=== PATIENT | female | born 1985 | race Caucasian/White ===

== ENCOUNTER 2018-09-19 07:26 | Day surgery (SDC) | payer BC ==
[~2018-09-19 07:26] MED LIST: Dexamethasone 4 MG/ML 5 ML MDV ONE; HYDROmorphone 0.5 MG/0.5 ML Syringe ONE; Ketorolac 30 MG/ML SDV ONE; Lactated Ringers 1,000 ML IV SCH; Lidocaine 1% 6 ML ONE; Lidocaine 1%/Sod Bicarbonate in NS 8.4% 1 ML Syringe IDERM PRN; Midazolam 1 MG/ML 2 ML SDV ONE; Ondansetron 4 MG/2 ML SDV ONE; Propofol 200 MG/20 ML SDV ONE; Rocuronium 50 MG/5 ML Vial ONE; Sodium Chloride 0.9% 10 ML Syringe FLUSH PRN; ceFAZolin 1 GM Vial ONE; fentaNYL 250 MCG/5 ML SDV ONE
--- NOTE | 2018-09-19 08:05 | PCM.PREANE ---
Preanesthetic Assessment - Anesthesia/Transfusion/Family Hx Anesthesia History: Prior Anesthesia Without Reaction Family History of Anesthesia Reaction: No Transfusion History: No Prior Transfusion(s) - Review of Systems General: No Symptoms Pulmonary: No Symptoms Cardiovascular: No Symptoms Gastrointestinal: Abdominal Pain (Left lower quad) Neurological: No Symptoms Other: Reports: Easy Bruising, Anxiety - Physical Assessment NPO Status Date: 09/18/18 NPO Status Time: 00:00 Pulse: 97 O2 Sat by Pulse Oximetry: 100 Respiratory Rate: 16 Blood Pressure: 124/82 Temperature: 36.3 C Height: 1.52 m Weight: 42 kg ASA Class: 2 Mental Status: Alert & Oriented x3 Airway Class: Mallampati = 1 Dentition: Reports: Normal Dentition Thyro-Mental Finger Breadths: 3 Mouth Opening Finger Breadths: 3 ROM/Head Extension: Full Lungs: Clear to Auscultation, Normal Respiratory Effort Cardiovascular: Regular Rate, Regular Rhythm - Lab Values: Laboratory Last Values WBC 10.01 K/mm3 (3.98-10.04) 09/17/18 16:33 RBC 4.35 M/mm3 (3.98-5.22) 09/17/18 16:33 Hgb 13.4 gm/L (11.2-15.7) 09/17/18 16:33 Hct 41.0 % (34.1-44.9) 09/17/18 16:33 MCV 94.3 fl (79.4-94.8) 09/17/18 16:33 MCH 30.8 pg (25.6-32.2) 09/17/18 16:33 MCHC 32.7 g/dl (32.2-35.5) 09/17/18 16:33 RDW Std Deviation 45.1 fL (36.4-46.3) 09/17/18 16:33 Plt Count 415 K/mm3 (182-369) H 09/17/18 16:33 MPV 10.0 fl (9.4-12.3) 09/17/18 16:33 Neut % (Auto) 66.2 % (34.0-71.1) 09/17/18 16:33 Lymph % (Auto) 26.5 % (19.3-51.7) 09/17/18 16:33 [place] % (Auto) 5.7 % (4.7-12.5) 09/17/18 16:33 Eos % (Auto) 1.2 (0.7-5.8) 09/17/18 16:33 Baso % (Auto) 0.2 % (0.1-1.2) 09/17/18 16:33 Neut # (Auto) 6.63 K/mm3 (1.56-6.13) H 09/17/18 16:33 Lymph # (Auto) 2.65 K/mm3 (1.18-3.74) 09/17/18 16:33 [place] # (Auto) 0.57 K/mm3 (0.24-0.36) H 09/17/18 16:33 Eos # (Auto) 0.12 K/mm3 (0.04-0.36) 09/17/18 16:33 Baso # (Auto) 0.02 K/mm3 (0.01-0.08) 09/17/18 16:33 Creatinine 0.8 mg/dL (0.55-1.02) 09/17/18 16:33 Est Cr Clr Drug Dosing TNP 09/17/18 16:33 Estimated GFR (MDRD) > 60 mL/min (>60) 09/17/18 16:33 HCG, Qual Negative (NEGATIVE) 09/17/18 16:33 Urine Color Yellow (Yellow) 09/17/18 16:33 Urine Appearance Clear (Clear) 09/17/18 16:33 Urine pH 6.5 (5.0-8.0) 09/17/18 16:33 Ur Specific [place] 1.025 (1.005-1.030) 09/17/18 16:33 Urine Protein Negative (Negative) 09/17/18 16:33 Urine Glucose (UA) Negative (Negative) 09/17/18 16:33 Urine Ketones Trace (Negative) H 09/17/18 16:33 Urine Occult Blood Negative (Negative) 09/17/18 16:33 Urine Nitrite Negative (Negative) 09/17/18 16:33 Urine Bilirubin Negative (Negative) 09/17/18 16:33 Urine Urobilinogen 0.2 (0.2-1.0) 09/17/18 16:33 Ur Leukocyte Esterase Negative (Negative) 09/17/18 16:33 - Anesthesia Plan Pre-Op Medication Ordered: None - Acknowledgements Anesthesia Type Planned: General Anesthesia Pt an Appropriate Candidate for the Planned Anesthesia: Yes Alternatives and Risks of Anesthesia Discussed w Pt/Guardian: Yes Pt/Guardian Understands and Agrees with Anesthesia Plan: Yes PreAnesthesia Questionnaire Gastrointestinal History: Reports: GERD - SUBSTANCE USE Smoking Status *Q: Never Smoker Tobacco Use Within Last Twelve Months: No Second Hand Smoke Exposure: No Days Per Week of Alcohol Use: 0 Number of Drinks Per Day: 0 Total Drinks Per Week: 0 Recreational Drug Use History: No - CURRENT (IN HOUSE) MEDS Current Meds: Current Medications Lactated Ringer's (Ringers, Lactated) 1,000 mls @ 125 mls/hr IV ASDIRECTED KARLI Stop: 09/19/18 23:00 Lidocaine/Sodium Bicarbonate (Buffered Lidocaine 1% In Ns 8.4%) 0.25 ml IDERM ONETIME PRN PRN Reason: Prior to IV Start Stop: 09/19/18 18:00 Sodium Chloride (Saline Flush) 10 ml FLUSH ASDIRECTED PRN PRN Reason: Keep Vein Open Stop: 09/19/18 18:00 Discontinued Medications Cefazolin Sodium (Ancef) Confirm Administered Dose 2 gm .ROUTE .STK-MED ONE Stop: 09/19/18 07:12 Dexamethasone (Dexamethasone) Confirm Administered Dose 20 mg .ROUTE .STK-MED ONE Stop: 09/19/18 07:12 Fentanyl (Sublimaze) Confirm Administered Dose 250 mcg .ROUTE .STK-MED ONE Stop: 09/19/18 07:13 Hydromorphone HCl (Dilaudid) Confirm Administered Dose 0.5 mg .ROUTE .STK-MED ONE Stop: 09/19/18 07:13 Lidocaine HCl (Xylocaine-Mpf 1%) Confirm Administered Dose 6 mls @ as directed .ROUTE .STK-MED ONE Stop: 09/19/18 07:12 Ketorolac Tromethamine (Toradol) Confirm Administered Dose 30 mg .ROUTE .STK- MED ONE Stop: 09/19/18 07:12 Midazolam HCl (Versed 1 Mg/Ml) Confirm Administered Dose 2 mg .ROUTE .STK-MED ONE Stop: 09/19/18 07:12 Ondansetron HCl (Zofran) Confirm Administered Dose 4 mg .ROUTE .STK-MED ONE Stop: 09/19/18 07:12 Propofol (Diprivan 20 Ml) Confirm Administered Dose 200 mg .ROUTE .STK-MED ONE Stop: 09/19/18 07:12 Rocuronium Crump (Zemuron) Confirm Administered Dose 50 mg .ROUTE .STK-MED ONE Stop: 09/19/18 07:12
[2018-09-19] MEDS ORDERED: Methylene Blue 50 MG/10 ML Ampule ONE (08:09)
[2018-09-19] MEDS ORDERED: Bupivacaine 0.5% 30 ML SDV ONE (08:10)
[2018-09-19] MEDS ORDERED: Dextrose 5% in Water 100 ML ONE ×2 (08:10→09:30)
[2018-09-19] MEDS ORDERED: diphenhydrAMINE 50 MG/ML SDV IVPUSH PRN (09:36)
[2018-09-19] MEDS ORDERED: Ondansetron 4 MG/2 ML SDV IVPUSH PRN (09:36)
[2018-09-19] MEDS ORDERED: fentaNYL 100 MCG/2 ML SDV IVPUSH PRN (09:36)
[2018-09-19] MEDS ORDERED: HYDROmorphone 0.5 MG/0.5 ML Syringe IVPUSH PRN (09:36)
[2018-09-19] MEDS ORDERED: ePHEDrine 50 MG/ML SDV IVPUSH PRN (09:36)
[2018-09-19] MEDS ORDERED: Neostigmine Methylsulfate 1 MG/ML 5 ML Syringe ONE (09:42)
[2018-09-19] MEDS ORDERED: Phenylephrine 1 MG in Sodium Chloride 0.9% 10 ML IV SCH (09:45)
[2018-09-19] MEDS ORDERED: Acetaminophen/oxyCODONE 325-5 MG Tab PO PRN (10:19)
--- NOTE | 2018-09-19 10:25 | PCM.OPNOTE ---
- General Post-Op/Procedure Note Date of Surgery/Procedure: 09/19/18 Operative Procedure(s): Laparoscopy, lysis of pelvic adhesions, biopsy of peritoneum, cautery ablation of endometriosis, chromotubation Findings: Patient had endometriosis involving the uterine body including the fundus, posterior cul-de-sac area involving the insertion of the uterosacral ligaments. There was endometriosis implants and a small endometrioma on the left ovary. Patient had increased vascularity in the broad ligaments right side greater than left. Fallopian tubes were patent bilaterally however left side showed a small band adhesion from the fimbria to the ovary. Flow from this fallopian tube was somewhat restricted but present. Cul-de-sac had 2 peritoneal defects 1 approximately 2 cm in diameter soft flaccid and the other just a few millimeters in diameter. No entry cul-de-sac endometriosis was noted. The appendix. We flaccid and noninflamed. Liver edge was normal. The gallbladder was distended. No upper abdominal abnormalities were noted. Pre Op Diagnosis: 1. Endometriosis. F2. Pelvic pain Post-Op Diagnosis: Same with left ovarian endometrioma, adhesions involving the left broad ligament, left ovary and left fallopian tube and the anterior cul-de- sac. Patent fallopian tubes bilaterally Anesthesia Technique: General ET Tube Other Anesthesia Type: Marcaine 0.5% local10 mL total Primary Surgeon: Gera Barajas Secondary Surgeon: Shubham Sheppard Anesthesia Provider: Verónica Bangura Vascular Surgery Physician: Agustín Blakely Reason Vascular Surgery Physician Was Necessary: Retraction, assistance, patient safety, quality of care. Role of Vascular Surgery Physician: Same Pathology: Biopsy posterior cul-de-sac peritoneum Fluid Replacement, Intraop: 1,100 Output, Urine Amount: 50 EBL in mLs: 5 Drain/Tube Comments:: Indwelling bladder catheter during surgery only Complications: None Condition: Good Free Text/Narrative:: Surgery duration: 36 minutes Procedure: The patient was taken to the operating room and placed in supine position on the operative table. She had sequential compression stockings in place for DVT prophylaxis and had been given 2 g of Ancef IV for infection prophylaxis. She was administered general endotracheal anesthesia. After administration of anesthesia the patient was placed in dorsal lithotomy position and prepped and draped in usual fashion. An indwelling bladder catheter was placed as was a uterine manipulator. It should be noted the uterus sounded to 8 cm and was noted to be anterior and mid position. Left upper quadrant site and suprapubic site were then infiltrated with approximately 3-4 mL of Marcaine 0.5%. 5 mm incisions were made in these areas. Verres needle was placed in the infraumbilical incision site and pneumoperitoneum was established was in 2 L of CO2. The laparoscopic sleeve was then placed as was the scope. Under direct visualization the suprapubic site was developed with a 5 mm port. Pelvis was evaluated findings as above. Right posterior cul-de-sac, post uterus, Left broad ligament and some small mulberry colored lesions present these were biopsied and then cauterized with unipolar cautery. Anatomy as described above. Chromotubation was accomplished and dye spilled from both fallopian tubes. Dye spilled more readily from the right tube and the left tube. There was a small adhesion on the distal end of the left fallopian tube to the ovary. This small band adhesions taken down bluntly. After biopsy and cauterization was performed the pneumoperitoneum was reversed. The lower sleeve having been removed under direct visualization. The upper port was removed and the incisions were closed with single subcuticular interrupted suture of 3-0 Monocryl. The incisions were further approximated with Dermabond skin glue. The uterine manipulator and Moncada catheter removed. Patient was returned to the supine position and awakened from general endotracheal anesthesia. She left the operating room in good condition.
--- NOTE | 2018-09-19 10:43 | PCM.POSTAN ---
POST ANESTHESIA ASSESSMENT - MENTAL STATUS Mental Status: Alert - VITAL SIGNS Pulse Rate: 116 SaO2: 100 (2LPM nasal cannula) Resp Rate: 14 Blood Pressure: 123/82 Temperature: 36.5 C - RESPIRATORY Respiratory Status: Respiratory Rate WNL, Airway Patent, O2 Saturation Stable, Supplemental Oxygen - CARDIOVASCULAR CV Status: Pulse Rate WNL, Blood Pressure Stable - GASTROINTESTINAL GI Status: No Symptoms - POST OP HYDRATION Hydration Status: Adequate & Stable
[2018-09-19] MEDS ORDERED: Ketorolac 30 MG/ML SDV IVPUSH ONE (11:00)
--- NOTE | 2018-09-19 11:43 | PCM48HPAN ---
Post Anesthesia Note - EVALUATION WITHIN 48HRS OF ANESTHETIC Vital Signs in Normal Range: Yes Patient Participated in Evaluation: Yes Respiratory Function Stable: Yes Airway Patent: Yes Cardiovascular Function Stable: Yes Hydration Status Stable: Yes Pain Control Satisfactory: Yes Nausea and Vomiting Control Satisfactory: Yes Mental Status Recovered: Yes
[2018-09-19] MEDS ORDERED: Acetaminophen/Codeine 300-30 MG Tab PO PRN (12:17)
== END 2018-09-19 14:05 | disposition home or self-care (01) ==
LOC: JD.SDS 07:26
PROVIDERS: ATTEND Obstetrics & Gynecology
DX: N80.3 Endometriosis of pelvic peritoneum (principal); N80.1 Endometriosis of ovary; N73.6 Female pelvic peritoneal adhesions (postinfective); K21.9 Gastro-esophageal reflux disease without esophagitis; F41.9 Anxiety disorder, unspecified; D64.9 Anemia, unspecified; G43.909 Migraine, unspecified, not intractable, without status migrainosus; Z91.040 Latex allergy status; Z79.899 Other long term (current) drug therapy
CPT/HCPCS: 36415; 49321; 58662; 81003; 82565; 84703; 85025; J0690; J1100; J1170; J1885; J2001; J2250; J2405; J2704; J2710; J3010; J3490; J7060; J7120; 00840